=== PATIENT | female | born 1985 ===

== ENCOUNTER 2022-12-24 05:00 | Day surgery (SDC) | payer OTHER ==
[~2022-12-24] VITALS: Ht 160 cm; Wt 53.1 kg
[~2022-12-24 05:00] MED LIST: CLONAZEPAM0.5 MG PO; HORIZANT300 MG PO; WELLBUTRIN XL300 MG PO
[2022-12-24] MEDS ORDERED: IBU600 MG PO (11:39)
== END 2022-12-24 15:40 | disposition home or self-care (01) ==
LOC: CIR.AMB 05:00
PROVIDERS: ATTEND Obstetrics & Gynecology Gynecology
DX: N84.0 Polyp of corpus uteri (principal); N84.1 Polyp of cervix uteri; N92.0 Excessive and frequent menstruation with regular cycle; Z88.8 Allergy status to other drugs, medicaments and biological substances; Z20.822 Contact with and (suspected) exposure to COVID-19